=== PATIENT | male | born 1965 | race African-American/Black ===

== ENCOUNTER 2024-07-19 22:21 | Inpatient (IN) | payer OTHER ==
[~2024-07-19] VITALS: Ht 180.3 cm; Wt 93.9 kg
[2024-07-20 00:05] VITALS: BP 163/83; TEMP 98.8; O2SAT 97
[2024-07-20] MEDS ORDERED: MAGNESIUM HYDROXIDE 30 ML UDC PO PRN (01:00)
[2024-07-20] MEDS ORDERED: ONDANSETRON HCL/PF 4 MG/2 ML VIAL IVP PRN (01:00)
[2024-07-20] MEDS ORDERED: HYDROCODONE/APAP 10/325MG TABLET PO PRN (01:00)
[2024-07-20] MEDS ORDERED: DEXTROSE 50%-WATER 50 ML DISP.SYRIN IV PRN (01:00)
[2024-07-20] MEDS ORDERED: ACETAMINOPHEN 325 MG TABLET PO PRN (01:00)
[2024-07-20] MEDS ORDERED: MAG HYDROX/AL HYDROX/SIMETH 30 ML UDC PO PRN (01:00)
[2024-07-20] MEDS ORDERED: Z GUARD REMEDY 4 OZ OINT TP PRN (01:00)
[2024-07-20] MEDS ORDERED: ZOLPIDEM TARTRATE 5 MG TABLET PO PRN (01:00)
[2024-07-20] MEDS: hydrALAZINE HCL IV 20 MG VIAL IV ONE (02:04)
[2024-07-20] MEDS: IV NS 0.9% 1,000 ML IV PRN (03:16)
[2024-07-20] MEDS: BLOOD SUGAR DIAGNOSTIC 1 EACH STRIP IN SCH (06:33)
[2024-07-20] MEDS: INSULIN REGULAR, HUMAN 100 UNIT/ML 3 ML VIAL SQ PRN (06:34)
[2024-07-20 06:58] LABS: BASOPHILS # (AUTO) 0.1 K/uL (0.0-0.2); BASOPHILS % (AUTO) 1.4 % (0.0-2.0); EOSINOPHILS # (AUTO) 0.1 K/uL (0.0-0.7); EOSINOPHILS % (AUTO) 1.5 % (0.0-6.0); HEMATOCRIT 31 % (39-51); HEMOGLOBIN 10.2 g/dL (13.5-17.5); LYMPHOCYTES # (AUTO) 0.7 K/uL (0.8-4.8); LYMPHOCYTES % (AUTO) 16.2 % (20.0-44.0); MEAN CORPUSCULAR HEMOGLOBIN 30 PG (26.0-33.0); MEAN CORPUSCULAR HGB CONC 33 g/dl (31.0-36.0); MEAN CORPUSCULAR VOLUME 91 fL (80-96); MONOCYTES # (AUTO) 0.5 K/uL (0.1-1.30); MONOCYTES % (AUTO) 12.4 % (2.0-12.0); NEUTROPHILS % (AUTO) 68.5 % (43.0-81.0); PLATELET COUNT (AUTO) 208 K/uL (150-450); RED BLOOD CELL COUNT(AUTO) 3.45 MIL/uL (4.5-6.0); RED CELL DISTRIBUTION WIDTH 14.1 % (11.5-15.0); WHITE BLOOD COUNT (AUTO) 4.4 K/uL (4.3-11.0)
[2024-07-20 07:28] LABS: CALCIUM, SERUM 8.8 mg/dL (8.5-10.1); CREATININE 1.5 mg/dL (0.6-1.3); POTASSIUM 4.6 mmol/L (3.5-5.1)
[2024-07-20 08:00] VITALS: BP 156/79; TEMP 98.8; O2SAT 98
[2024-07-20] MEDS ORDERED: ASPI-1169 PO (08:37)
[2024-07-20] MEDS ORDERED: BENA10TA74 PO (08:37)
[2024-07-20] MEDS ORDERED: FERR325T28 GT (08:37)
[2024-07-20] MEDS ORDERED: METF-442 PO (08:37)
[2024-07-20] MEDS ORDERED: RIVA2.5T PO (08:37)
[2024-07-20] MEDS: AMLODIPINE BESYLATE 5 MG TABLET PO SCH (08:50)
[2024-07-20 16:00] VITALS: BP 136/75; TEMP 99.5; O2SAT 99
[2024-07-20 20:00] VITALS: BP 130/69; TEMP 98.5; O2SAT 99
[2024-07-20 21:00] VITALS: BP 125/70; TEMP 98; O2SAT 99
[2024-07-21 07:07] LABS: BASOPHILS # (AUTO) 0.1 K/uL (0.0-0.2); BASOPHILS % (AUTO) 1.3 % (0.0-2.0); EOSINOPHILS # (AUTO) 0.2 K/uL (0.0-0.7); EOSINOPHILS % (AUTO) 4.6 % (0.0-6.0); HEMATOCRIT 33 % (39-51); HEMOGLOBIN 10.5 g/dL (13.5-17.5); LYMPHOCYTES # (AUTO) 1.1 K/uL (0.8-4.8); MEAN CORPUSCULAR HEMOGLOBIN 29 PG (26.0-33.0); MEAN CORPUSCULAR HGB CONC 32 g/dl (31.0-36.0); MEAN CORPUSCULAR VOLUME 91 fL (80-96); MONOCYTES # (AUTO) 0.5 K/uL (0.1-1.30); NEUTROPHILS # (AUTO) 3.1 K/uL (1.8-8.9); NEUTROPHILS % (AUTO) 62.1 % (43.0-81.0); PLATELET COUNT (AUTO) 179 K/uL (150-450); RED BLOOD CELL COUNT(AUTO) 3.63 MIL/uL (4.5-6.0); RED CELL DISTRIBUTION WIDTH 14.1 % (11.5-15.0)
[2024-07-21 07:30] VITALS: BP 183/89; TEMP 98.6; O2SAT 99
[2024-07-21 07:34] LABS: ALBUMIN 3.3 g/dL (3.4-5.0); CALCIUM, SERUM 8.9 mg/dL (8.5-10.1); CREATININE 1.2 mg/dL (0.6-1.3); PHOSPHORUS 3.3 mg/dL (2.5-4.9); POTASSIUM 3.5 mmol/L (3.5-5.1); TOTAL PROTEIN, SERUM 8.5 g/dL (6.4-8.2)
[2024-07-21 07:41] LABS: MAGNESIUM 1.1 mg/dL (1.8-2.4)
[2024-07-21] MEDS: THERAHONEY GEL 1.5 OZ TUBE TP SCH (08:20)
[2024-07-21 08:22] VITALS: BP 183/89
[2024-07-21] MEDS: Magnesium 1GM/D5W 100ML PREMIX 100 ML IV SCH (12:35)
[2024-07-22 08:09] LABS: PTH, INTACT 34 pg/mL (15-65)
== END 2024-07-21 15:44 | disposition home or self-care (01) | DRG 349 ==
LOC: TELE 23:54 → MED 07-20 01:19
DX: T87.81 Dehiscence of amputation stump (principal); N17.0 Acute kidney failure with tubular necrosis; E11.42 Type 2 diabetes mellitus with diabetic polyneuropathy; E87.1 Hypo-osmolality and hyponatremia; L97.529 Non-pressure chronic ulcer of other part of left foot with unspecified severity; D64.9 Anemia, unspecified; E11.51 Type 2 diabetes mellitus with diabetic peripheral angiopathy without gangrene; E11.621 Type 2 diabetes mellitus with foot ulcer; I10 Essential (primary) hypertension; Y83.5 Amputation of limb(s) as the cause of abnormal reaction of the patient, or of later complication, without mention of misadventure at the time of the procedure; Z79.82 Long term (current) use of aspirin; Z79.01 Long term (current) use of anticoagulants; Z79.84 Long term (current) use of oral hypoglycemic drugs; M89.8X9 Other specified disorders of bone, unspecified site; Z89.412 Acquired absence of left great toe; Y92.9 Unspecified place or not applicable; F10.10 Alcohol abuse, uncomplicated; Z88.6 Allergy status to analgesic agent; Y90.9 Presence of alcohol in blood, level not specified
CPT/HCPCS: 36415; 73630-TC; 76770-TC; 80048-TC; 80053-TC; 82550-TC; 82962-TC; 83735-TC; 83970; 84100-TC; 84155; 84165; 85025-TC; 98960; A4223; A6253; G0378; J0360; J1815; J3475; J7030